=== PATIENT | female | born 1985 | race Caucasian/White ===

== ENCOUNTER 2018-10-23 14:09 | Outpatient (CLI) | payer BC ==
--- NOTE | 2018-10-23 14:44 | RAD ---
LEFT HUMERUS TWO VIEWS: Indications: Pain, left arm. FINDINGS: Left humerus is unremarkable. No fracture or dislocation seen. IMPRESSION: Unremarkable exam. POS: [facility]
== END 2018-10-23 14:10 | disposition home or self-care (01) ==
LOC: BICRAD 14:09
PROVIDERS: ATTEND Family Medicine
DX: M79.602 Pain in left arm (principal)